=== PATIENT | male | born 1980 | race Two or more races ===

== ENCOUNTER 2016-10-25 22:11 | Emergency (ER) | payer OTHER ==
--- NOTE | 2016-10-25 23:28 | RADIOLOGY REPORT (SQ) ---
EXAM DESCRIPTION: FINGER RIGHT COMPLETED DATE/TIME: 10/25/2016 11:13 pm REASON FOR STUDY: foreign body piece of fiberglass right index COMPARISON: None. NUMBER OF VIEWS: Three views. TECHNIQUE: AP, lateral, and oblique images acquired of the right second finger. LIMITATIONS: None. FINDINGS: MINERALIZATION: Normal. BONES: No acute fracture or dislocation. No worrisome bone lesions. SOFT TISSUES: Mild soft tissue swelling. 10 x 2 mm radiopaque foreign body in the proximal 2nd digit . OTHER: No other significant finding. IMPRESSION: 10 x 2 mm radiopaque foreign body in the proximal 2nd digit. COMMENT: SITE OF TRAUMA/COMPLAINT MARKED/STAMP COMPLETED: Yes TECHNICAL DOCUMENTATION: JOB ID: [id number] [employer]- All Rights Reserved
[2016-10-25] MEDS ORDERED: LIDOCAINE 1% INJ-PF (10 MG/ML) 30 ML SDV ONE (23:36)
[2016-10-25] MEDS ORDERED: DOXYCYCLINE HYCLATE 100 MG TABLET PO ONE (23:52)
--- NOTE | 2016-10-25 23:55 | ER Document Report ---
ED General - General Chief Complaint: Puncture Wound Stated Complaint: FINGER INJURY Time Seen by Provider: 10/25/16 23:00 Notes: Patient is a 36-year-old male who presents with complaint of a piece of fiberglass stuck in his right second digit. He was picking up the heart top to his jeep and there was a crack in it and the piece of fiberglass went through his finger. The fiberglass with the palmar aspect of the proximal phalanx of the second digit of the hand. He denies any numbness or tingling into the fingertip. He says he can still flex and extend his finger. He is up-to-date on tetanus. No other complaints at this time. TRAVEL OUTSIDE OF THE [place] IN LAST 30 DAYS: No - Related Data Allergies/Adverse Reactions: No Known Allergies Allergy (Verified 10/25/16 22:37) Past Medical History - Social History Smoking Status: Current Some Day Smoker Chew tobacco use (# tins/day): No Frequency of alcohol use: Occasional Drug Abuse: None Family History: Reviewed & Not Pertinent Renal/ Medical History: Denies: Hx Peritoneal Dialysis Past Surgical History: Reports: Hx Tonsillectomy - Immunizations Hx Diphtheria, Pertussis, Tetanus Vaccination: Yes Review of Systems - Review of Systems Notes: My Normal Review Basic REVIEW OF SYSTEMS: CONSTITUTIONAL : Denies fever, chills, or sweats. Denies recent illness. MUSCULOSKELETAL: Puncture wound with foreign body in left second digit. SKIN: Denies rash or skin lesions. NEUROLOGICAL: Denies altered mental status or loss of consciousness. Denies headache. Denies weakness or paralysis or loss of use of either side. Denies problems with gait or speech. Denies sensory or motor loss. ALL OTHER SYSTEMS REVIEWED AND NEGATIVE. Physical Exam - Vital signs Vitals: Temp Pulse Resp BP Pulse Ox 99.3 F 95 16 132/81 H 97 10/25/16 22:37 10/25/16 22:37 10/25/16 22:37 10/25/16 22:37 10/25/16 22:37 - Notes Notes: General Appearance: Well nourished, alert, cooperative, no acute distress, no obvious discomfort. Vitals: reviewed, See vital signs table. Extremities: strength 5/5 in all extremities, good pulses in all extremities, slender stick like a piece of fiberglass that goes completely through the left second digit. The penetrates the soft tissue on the palmar aspect of the proximal phalanx of the left second digit. Patient is able flex and extend the finger. Distal sensation is intact. No active bleeding., no edema. Skin: warm, dry, appropriate color, no rash Neuro: speech clear, oriented x 3, normal affect, responds appropriately to questions. Distal sensation intact. Course - Re-evaluation Re-evalutation: 10/26/16 06:49 Patient's foreign body was removed. He did break in half and removed it so I did remove the 2 pieces each from a separate site of the finger. It appears that it is unlikely that there is any splintering left in the finger however informed patient is still possible that the very small microscopic piece of fiberglass could still have broken off in his finger. I informed him that the small foreign bodies eventually work their way to the surface of the finger. At this time the risk of cutting his finger open and looking for there is worth the benefit. Patient's wound was thoroughly irrigated with saline. It was cleaned with chlorhexidine. He will be discharged home with doxycycline as prophylaxis. I did talk to him about the signs and symptoms of infection of his finger and also the signs and symptoms of a flexor tenosynovitis informed him must return to the ER immediately for reevaluation as this would be an emergency. Patient agrees with plan will be discharged home. Dictation of this chart was performed using voice recognition software; therefore, there may be some unintended grammatical errors. - Vital Signs Vital signs: Temp Pulse Resp BP Pulse Ox 99.3 F 79 18 136/80 H 96 10/25/16 22:37 10/26/16 00:02 10/26/16 00:02 10/26/16 00:02 10/26/16 00:02 Discharge - Discharge Clinical Impression: Foreign body Condition: Good Disposition: HOME, SELF-CARE Additional Instructions: Please clean your finger and change the dressing twice a day. Please return to the ER immediately if you develop increasing pain, redness or increasing swelling to the finger, and abnormal discharge, inability to extend the finger, or if you have any concerns that your finger is becoming infected. Please take the antibiotic with food and wear sun screen because the antibiotic makes your skin very sensitive to the sun. Prescriptions: Doxycycline Hyclate 100 mg PO BID #14 capsule
[2016-10-26 00:21] VITALS: BP 136/80
== END 2016-10-26 00:02 | disposition home or self-care (01) ==
LOC: ER 22:11
DX: S61.240A Puncture wound with foreign body of right index finger without damage to nail, initial encounter (principal); W25.XXXA Contact with sharp glass, initial encounter; F17.200 Nicotine dependence, unspecified, uncomplicated
CPT/HCPCS: 99283; 73140; J3490